=== PATIENT | male | born 1985 | race Caucasian/White ===

== ENCOUNTER 2020-05-24 15:15 | Emergency (ER) | payer SELFPAY ==
[2020-05-24 15:24] VITALS: BP 162/75; PULSE 108; RESP 14; TEMP 36.8; O2SAT 98; BMI 37.2
--- NOTE | 2020-05-24 15:26 | DI.RAD.S_ITS ---
PROCEDURE: XR HAND LT MIN 3V INDICATIONS: punched a wall TECHNIQUE: 3 views of the hand(s) acquired. COMPARISON: None. FINDINGS: Bones: 5th metacarpal fracture involving the mid diaphysis. There is slight radial displacement of the distal fragment. There is also dorsal apex angulation. Soft tissues: No suspicious soft tissue calcifications. IMPRESSION: Mid 5th metacarpal fracture Dictated by: Sagar Barron M.D. on 05/24/2020 at 15:51 Approved by: Sagar Barron M.D. on 05/24/2020 at 15:52
[2020-05-24] MEDS: LIDOCAINE 2% INJ MDV 20 ML INJ (15:55)
[2020-05-24] MEDS: HYDROCODONE/ACET 5/325 TABLET 1 TAB PO (15:55)
--- NOTE | 2020-05-24 17:19 | DI.RAD.S_ITS ---
PROCEDURE: XR HAND LT MIN 3V INDICATIONS: post splint TECHNIQUE: 3 views of the hand(s) acquired. COMPARISON: [facility], CR, XR HAND LT MIN 3V, 05/24/2020, 15:27. FINDINGS: Bones: 5th metacarpal fracture grossly unchanged alignment. Soft tissues: No suspicious soft tissue calcifications. IMPRESSION: Unchanged alignment of 5th metacarpal fracture, status post splint. Dictated by: Sagar Barron M.D. on 05/24/2020 at 18:04 Approved by: Sagar Barron M.D. on 05/24/2020 at 18:04
[2020-05-24 18:40] VITALS: BP 145/80; PULSE 91; RESP 15; O2SAT 98
--- NOTE | 2020-05-24 18:40 | ED.UPPEXIN ---
HPI - Extremity Injury (Upper) <HEMANT Sykes - Last Filed: 05/24/20 20:32> General Chief Complaint: Extremity Injury, Upper Stated Complaint: LEFT HAND INJURY Time Seen by Provider: 05/24/20 15:30 Source: patient Mode of arrival: Ambulatory Limitations: no limitations History of Present Illness HPI narrative: The patient is a 34-year-old male marijuana user who denies pertinent medical history presents with a chief complaint of left hand fracture. He presents off of [facility] and states that he punched a wall with his left hand yesterday. He is right-hand dominant, had an x-ray today and was sent to the emergency department for further care and splinting. He has been using Tylenol Motrin for pain. He denies any previous injuries to his left hand. Denies any wrist or elbow pain. Related Data Previous Rx's Medication Instructions Recorded hydrocodone-acetaminophen [[place]] 1 tab PO Q4-6H PRN #10 tab 05/24/20 Allergies Allergy/AdvReac Type Severity Reaction Status Date / Time No Known Drug Allergies Allergy Verified 05/24/20 15:24 Review of Systems <HEMANT Sykes - Last Filed: 05/24/20 20:32> Review of Systems Narrative: GENERAL: Denies chills, fatigue, malaise, fever, sweats. HEENT: Denies sinus pain, ear pain, sore throat, difficulty swallowing, dizziness. RESPIRATORY: Denies dyspnea, cough, wheezing, hemoptysis, sputum. CARDIOVASCULAR: Denies chest pain, palpitations, orthopnea, edema, GASTROINTESTINAL: Denies nausea, vomiting, abdominal pain, diarrhea, constipation, melena. : Denies dysuria, frequency, incontinence, hematuria, urinary retention. MUSCULOSKELETAL: See HPI SKIN: Denies rash, skin lesions, or other NEUROLOGIC: Denies weakness, headache, numbness, change in speech, confusion, seizures, incoordination. PSYCHIATRIC: No concerning psychosocial issues. 12 point review of systems is negative except for those stated above Patient History <HEMANT Sykes - Last Filed: 05/24/20 20:32> Social History Smoking Status: Unknown if ever smoked Smoking Status: Unknown if ever smoked alcohol intake frequency: 3 or more drinks per day Substance Use Type: marijuana Exam <HEMANT Sykes - Last Filed: 05/24/20 20:32> Narrative Exam Narrative: GENERAL: This is a well-nourished, well-developed patient, in no acute distress HEAD: Atraumatic. Normocephalic. No temporal or scalp tenderness. EYES: Pupils equal round and reactive. Extraocular motions intact. No scleral icterus. No injection or drainage. ENT: Nose without bleeding, purulent drainage or septal hematoma. Wearing a mask. Airway patent. NECK: Trachea midline. No JVD or lymphadenopathy. Supple, nontender, no meningeal signs. CARDIOVASCULAR: Regular rate and rhythm RESPIRATORY: Clear to auscultation. Breath sounds equal bilaterally. No wheezes, rales, or rhonchi. No cough. No increased respiratory effort. No accessory muscle use. EXTREMITIES: Pain to palpation generalized left hand, capillary refill less than 2 seconds all fingers left hand, over to flex and extend left wrist. No snuffbox pain to palpation left wrist. Positive left radial pulse. BACK: Nontender without deformity or crepitance. No flank tenderness. NEURO: AOx3. SKIN: No rash or erythema visible skin. No laceration or abrasion noted to left hand. Initial Vital Signs Initial Vital Signs: Vital Signs Temperature 98.3 F 05/24/20 15:24 Pulse Rate 108 H 05/24/20 15:24 Respiratory Rate 14 05/24/20 15:24 Blood Pressure 162/75 H 05/24/20 15:24 Pulse Oximetry 98 05/24/20 15:24 <Latisha Sloan MD - Last Filed: 05/31/20 23:59> Initial Vital Signs Initial Vital Signs: Vital Signs Temperature 98.3 F 05/24/20 15:24 Pulse Rate 108 H 05/24/20 15:24 Respiratory Rate 14 05/24/20 15:24 Blood Pressure 162/75 H 05/24/20 15:24 Pulse Oximetry 98 05/24/20 15:24 Procedures <HEMANT Sykes - Last Filed: 05/24/20 20:32> Orthopedic Fracture Reduction Fracture #1: Time Out Performed: Yes Side: left Fracture Reduction Location: metacarpal Analgesia: [place] block Technique: direct manipulation Post Reduction X-rays Demonstrate: acceptable reduction (Discussed with Dr. Sloan, x-rays reviewed with Dr. Sloan) Post-reduction neuro exam: intact Post-reduction vascular exam: intact Splint Applied: Yes Patient Tolerated Procedure: Well Orthopedic Splinting/Casting Injury #1: Side: left Upper Extremity Injury Location: hand Upper Extremity Immobilizer: ulnar gutter and Yg wrap Post splinting neuro exam: intact Post splinting vascular exam: intact Placed by: Nursing Scores <MAGGY SykesBC - Last Filed: 05/24/20 20:32> [facility] [place] coma scale eye opening: Spontaneous Mathew coma scale verbal response: Orientated Mathew coma scale motor response: Obey commands Mathew coma scale total score: 15 Course <MAGGY SykesBC - Last Filed: 05/24/20 20:32> Orders Ordered: Discontinued Medications Hydrocodone Bitart/Acetaminophen ([place] 5/325) 1 tab PO NOW ONE Stop: 05/24/20 15:47 Last Admin: 05/24/20 15:55 Dose: 1 tab Documented by: DAVIAN Lidocaine HCl (Xylocaine 2%) 20 ml INJ INTRA-OP ONE Stop: 05/24/20 15:47 Last Admin: 05/24/20 15:55 Dose: 20 ml Documented by: DAVIAN Vital Signs Vital signs: Vital Signs - 8 hr 05/24/20 15:24 05/24/20 18:40 Temperature 98.3 F Pulse Rate 108 H 91 H Respiratory Rate 14 15 Blood Pressure 162/75 H 145/80 H Pulse Oximetry 98 98 <Latisha Sloan MD - Last Filed: 05/31/20 23:59> Orders Ordered: Discontinued Medications Hydrocodone Bitart/Acetaminophen ([place] 5/325) 1 tab PO NOW ONE Stop: 05/24/20 15:47 Last Admin: 05/24/20 15:55 Dose: 1 tab Documented by: DAVIAN Lidocaine HCl (Xylocaine 2%) 20 ml INJ INTRA-OP ONE Stop: 05/24/20 15:47 Last Admin: 05/24/20 15:55 Dose: 20 ml Documented by: DAVIAN Vital Signs Vital signs: Vital Signs - 8 hr 05/24/20 15:24 05/24/20 18:40 Temperature 98.3 F Pulse Rate 108 H 91 H Respiratory Rate 14 15 Blood Pressure 162/75 H 145/80 H Pulse Oximetry 98 98 MDM - Extremity Injury (Upper) <HEMANT Sykes - Last Filed: 05/24/20 20:32> Imaging Data Extremity x-ray #1: Radiologist's Impression: [address] [place] [id number] XRay Report Signed Patient: Xavier Price AMR#: [id number] : 1985Acct:[id number] Age/Sex: 34 / MDate of Service: 05/24/20 Loc: ED Accession Number: [id number] Procedure: XR hand LT min 3V Ordering Provider: Latisha Sloan MD PROCEDURE: XR HAND LT MIN 3V INDICATIONS: punched a wall TECHNIQUE: 3 views of the hand(s) acquired. COMPARISON: None. FINDINGS: Bones: 5th metacarpal fracture involving the mid diaphysis. There is slight radial displacement of the distal fragment. There is also dorsal apex angulation. Soft tissues: No suspicious soft tissue calcifications. IMPRESSION: Mid 5th metacarpal fracture Dictated by: Sagar Barron M.D. on 05/24/2020 at 15:51 Approved by: Sagar Barron M.D. on 05/24/2020 at 15:52 Extremity x-ray #2: Radiologist's Impression: [address] [place] [id number] XRay Report Signed Patient: Xavier Price AMR#: [id number] : 1985Acct:[id number] Age/Sex: 34 / MDate of Service: 05/24/20 Loc: ED Accession Number: [id number] Procedure: XR hand LT min 3V Ordering Provider: Maryann Traore PROCEDURE: XR HAND LT MIN 3V INDICATIONS: post splint TECHNIQUE: 3 views of the hand(s) acquired. COMPARISON: [facility], XR HAND LT MIN 3V, 05/24/2020, 15:27. FINDINGS: Bones: 5th metacarpal fracture grossly unchanged alignment. Soft tissues: No suspicious soft tissue calcifications. IMPRESSION: Unchanged alignment of 5th metacarpal fracture, status post splint. Dictated by: Sagar Barron M.D. on 05/24/2020 at 18:04 Approved by: Sagar Barron M.D. on 05/24/2020 at 18:0 [facility] Narrative Medical decision making narrative: The patient is a 34-year-old male who presents with a chief complaint of a broken hand. This correlates with his x-rays. Viewed and discussed with Dr. Sloan, block completed and reduction completed during splinting. Patient tolerated very very well. Reviewed x-rays postreduction with Dr. Sloan which shows slight improvement. Discussed at length rest ice compression elevation, pain medications, not combining [place] with anything sedating or driving with it. Discussed follow-up with orthopedics and primary care provider. Discussed not getting splint wet. Discussed come back to ER for acute concerns such as decreased circulation. Patient has no questions or concerns upon discharge and states understanding of return precautions as well as follow-up care. Discharge Plan Departure Patient Disposition: Home Clinical Impression: Closed fracture of fifth metacarpal bone Qualifiers: Encounter type: initial encounter Metacarpal location: shaft Fracture alignment: nondisplaced Laterality: left Qualified Code(s): S62.357A - Nondisplaced fracture of shaft of fifth metacarpal bone, left hand, initial encounter for closed fracture Discharge Date/Time: 05/24/20 18:50 Instructions: DI for Boxer's Fracture, How To Perform RICE (Rest, Ice, Compress, Elevate), How to Take Care of Your Splint Activity Restrictions/Additional Instructions: Thank you for trusting us with your care today. As discussed, you broke your hand. I have given contact information to the [facility] health natural resource technician, they can help you find a primary care provider. I have also given you contact information for [facility]. Please call them to help arrange follow-up. Please continue use rest ice compression elevation. Please come back to the emergency department for any acute concerns including decreased circulation to your fingers in the splint. Please take care to not get the splint wet. I have given you a prescription of a narcotic for pain. Be aware that this can be constipating and sedating. I encouraged taking with a stool softener, pushing fluids and fiber. Do not take and drive, operate heavy machinery, etc. Do not combine it with any other sedating substances such as alcohol. The combination of narcotics and alcohol and/or other sedatives can be lethal. Prescriptions: New hydrocodone-acetaminophen [[place]] 5-325 mg tablet 1 tab PO Q4-6H PRN (Reason: pain) Qty: 10 RF: 0 Referrals: [facility] [Provider Group] [facility] [Outside] <Latisha Sloan MD - Last Filed: 05/31/20 23:59> Cosign ED Attending Cosjonnyature Attestation: I was immediately available in the department for consultation throughout this patient's visit. I agree with documentation as above. Latisha Sloan MD
== END 2020-05-24 18:50 | disposition home or self-care (01) ==
PROVIDERS: Emergency Provider Nurse Practitioner Family
DX: S62.357A Nondisplaced fracture of shaft of fifth metacarpal bone, left hand, initial encounter for closed fracture (principal); W22.8XXA Striking against or struck by other objects, initial encounter
CPT/HCPCS: 26605; 29125; 73130; 99283; 99284

== ENCOUNTER → 2023-01-07 10:49 | Outpatient (CLI) | payer OTHER, SELFPAY ==
[2023-01-07 19:17] LABS: Add Manual Diff / Slide Review NO; Basophils Absolute Auto 100 /uL (0-100); Eosinophils Absolute Auto 300 /uL (0-450); Eosinophils Percent Auto 4.2 % (2-4); Hematocrit 42.3 % (41-53); Hemoglobin 14.1 g/dL (13.5-17.5); Lymphocytes Absolute Auto 2500 /uL (1100-4500); Lymphocytes Percent Auto 29.3 % (25-40); Mean Corpuscular HGB Conc 33.4 % (30-36); Mean Corpuscular Hemoglobin 27.7 PG (26-34); Monocytes Absolute Auto 600 /uL (0-900); Monocytes Percent Auto 7.2 % (3-14); Neutrophils Absolute Auto 4900 /uL (1500-7000); Neutrophils Percent Auto 58.3 % (50-75); Platelet Count 249 X10^3/uL (150-400); Red Cell Distribution Width 13.2 % (11.6-14.8); White Blood Cell Count 8.4 X10^3/uL (4.5-11.0)
[2023-01-07 19:28] LABS: Alanine Aminotransferase 18 IU/L (<50); Albumin 4.4 g/dL (3.5-5.0); Albumin Globulin Ratio 1.4 (1.0-2.8); Alkaline Phosphatase 51 U/L (38-126); Aspartate Aminotransferase 22 IU/L (17-59); BUN Creatinine Ratio 11.3 (6-22); Blood Urea Nitrogen 9 mg/dL (9-20); Calcium 9.3 mg/dL (8.4-10.2); Carbon Dioxide 30 mmol/L (22-32); Chloride 103 mmol/L (98-107); Estimated Glomerular Filt Rate > 60 mL/min (>60); Globulin 3.2 g/dL (1.7-4.1); Glucose 95 mg/dL (70-100); HEMOLYSIS < 15 (0-50); Potassium 4.5 mmol/L (3.4-5.1); Sodium 140 mmol/L (137-145); Total Protein 7.6 g/dL (6.3-8.2)
[2023-01-07 19:56] LABS: TSH w/ Reflex to FT4 1.21 uIU/mL (0.47-4.68)
[2023-01-07 20:28] LABS: Urine N gonorrhoeae NOT DETECTED
[2023-01-07 20:35] LABS: Urine Chlamydia NOT DETECTED
[2023-01-09 02:36] LABS: RPR Screen Non Reactive (Non Reactive)
[2023-01-11 17:55] LABS: HIV 1 & 2 Ab/Ag 4th Gen Combo NEGATIVE (NEGATIVE); Hep C Virus Ab w/Reflex Quant NEGATIVE s/c (NEGATIVE)
== END ==
PROVIDERS: PCP Physician Assistant; Visit Provider Physician Assistant
DX: R42 Dizziness and giddiness (principal); Z11.3 Encounter for screening for infections with a predominantly sexual mode of transmission
CPT/HCPCS: 80053; 84443; 85025; 86592; 86803; 87389; 87491; 87591